=== PATIENT | female | born 1980 | race Two or more races ===

== ENCOUNTER 2019-07-20 21:43 | Inpatient (IN) | payer SELFPAY ==
[~2019-07-20] VITALS: Ht 160 cm; Wt 75.9 kg
[~2019-07-20 21:43] MED LIST: ACET325T14 PO; IBUP-1222 PO; PREN1TAB60 PO
--- NOTE | 2019-07-20 22:14 | NUR ---
Pt on monitors. Pt down to gown with blankets on. 2 PIV's placed. Blood drawn. NS bolus running.
[2019-07-20 22:19] LABS: BASOPHILS # (AUTO) 0.04 x10^3/uL (0-0.1); BASOPHILS % (AUTO) 0 % (0-1); EOSINOPHILS # (AUTO) 0.58 x10^3/uL (0-0.4); EOSINOPHILS % (AUTO) 3 % (1-7); LYMPHOCYTES # (AUTO) 2.68 x10^3/uL (1-3.4); LYMPHOCYTES % (AUTO) 16 % (22-44); MD NO; MEAN CORPUSCULAR HEMOGLOBIN 30.2 pg (27.0-34.8); MEAN CORPUSCULAR HGB CONC 32.9 g/dL (32.4-35.8); MEAN CORPUSCULAR VOLUME 91.6 fL (80-100); MEAN PLATELET VOLUME 9.1 fL (7.4-10.4); MONOCYTES # (AUTO) 0.69 x10^3/uL (0.2-0.8); MONOCYTES % (AUTO) 4 % (2-9); NEUTROPHILS # (AUTO) 13.17 x10^3/uL (1.8-6.8); NEUTROPHILS % (AUTO) 77 % (42-75); PLATELET COUNT 210 x10^3/uL (130-400); RED BLOOD COUNT 5.26 x10^6/uL (3.82-5.3); RED CELL DISTRIBUTION WIDTH 13.5 % (9.6-15.2)
[2019-07-20] MEDS ORDERED: SODIUM CHLORIDE 0.9% 1,000ML IVBOLUS ONE (22:30)
[2019-07-20 22:31] LABS: ALBUMIN 3.4 g/dL (3.4-5.0); ANION GAP 9 mmol/L (5-15); CHLORIDE 109 mmol/L (98-107)
[2019-07-20] MEDS ORDERED: FENTANYL PF 100 MCG/2ML ONE (22:33)
--- NOTE | 2019-07-20 22:38 | NUR ---
50mcg of fentanyl given per verbal order. MD at bedside with US. Current BP 102/56. Pt alert.
--- NOTE | 2019-07-20 22:50 | NUR ---
Blood started at 2248 - VS BP 106/74, 98.6f, 81, 14 MD at bedside for pelvic. Second liter started Addendum: 07/20/19 at 2302 by MRICH blood checked and started with FLORES Macias
--- NOTE | 2019-07-20 22:53 | NUR ---
CASE COORDINATOR: E [employer] DR. STERN PAGED PER DR. QUAN AT THIS TIME
[2019-07-20] MEDS ORDERED: MISOPROSTOL 200 MCG TABLET PO ONE (23:00)
[2019-07-20] MEDS ORDERED: TRANEXAMIC ACID 1,000 MG in SODIUM CHLORIDE 0.9% 100 ML IVPB ONE (23:00)
--- NOTE | 2019-07-20 23:02 | NUR ---
Pt alert and reports she feels better. MD finished pelvic. 350ml of blood suctioned from vaginal canal. BP 125/64, HR 86, RR 18, 99% RA. TXA running. back at bedside.
--- NOTE | 2019-07-20 23:09 | NUR ---
OB at bedside.
--- NOTE | 2019-07-20 23:23 | NUR ---
BP dropped to 78/45. Pt placed with feet elevated. OB doing exam.
--- NOTE | 2019-07-20 23:23 | NUR ---
Second unit started/ BP 95/54. HR 84, RR 14, 100% RA
--- NOTE | 2019-07-20 23:41 | NUR ---
Pt remains alert. BP 97/67 HR 85 RR17 100% RA. Second unit finished. OB at bedside explaining surgery to pt. Products of conception placed in container by OB and pt label applied.
[2019-07-21] MEDS ORDERED: METHYLERGONOVINE 0.2 MG/ML IM PRN
[2019-07-21 00:11] VITALS: BP 94/71
--- NOTE | 2019-07-21 00:21 | NUR ---
Report given to FEED MILLERFLORES Alvarado. Pt remains alert. First unit of crossed blood running. Methergine given.
--- NOTE | 2019-07-21 00:24 | NUR ---
OR tech at bedside for transport.
[2019-07-21] MEDS ORDERED: SILVER NITRATE STICK TP ONE (00:32)
[2019-07-21] MEDS ORDERED: MISOPROSTOL 200 MCG TABLET ONE (00:32)
[2019-07-21] MEDS ORDERED: OXYTOCIN 10 UNITS/ML, 1ML ONE (00:32)
[2019-07-21] MEDS ORDERED: METHYLERGONOVINE 0.2 MG/ML IM ONE (00:33)
[2019-07-21 00:36] LABS: INTERNATIONAL NORMALIZED RATIO 1.09 (0.93-1.1); PROTHROMBIN TIME 11.6 Seconds (9.6-11.5)
[2019-07-21] MEDS ORDERED: MIDAZOLAM 1 MG/ML, 2ML ONE (00:38)
[2019-07-21] MEDS ORDERED: FENTANYL PF 250 MCG/5ML ONE (00:38)
[2019-07-21] MEDS ORDERED: DEXAMETHASONE 4 MG/ML, 1ML ONE (00:40)
[2019-07-21] MEDS ORDERED: ROCURONIUM 10MG/ML,5ML ONE (00:40)
[2019-07-21] MEDS ORDERED: CEFAZOLIN 1,000 MG ONE (00:40)
[2019-07-21] MEDS ORDERED: GLYCOPYRROLATE 0.2MG/1ML, 5ML ONE (00:40)
[2019-07-21] MEDS ORDERED: PROPOFOL 10 MG/ML, 20ML ONE (00:40)
[2019-07-21] MEDS ORDERED: ONDANSETRON 2MG/ML, 2ML ONE (00:40)
[2019-07-21] MEDS ORDERED: NEOSTIGMINE 1 MG/ML, 10ML ONE (00:40)
[2019-07-21] MEDS ORDERED: SUCCINYLCHOLINE 20 MG/ML, 10ML ONE (00:40)
[2019-07-21] MEDS ORDERED: HYDROmorphone 2 MG/ML, 1ML IVPush PRN (01:00)
[2019-07-21] MEDS ORDERED: LABETALOL 5MG/ML, 20ML IV PRN (01:00)
[2019-07-21] MEDS ORDERED: HALOPERIDOL 5 MG/ML IV PRN (01:00)
[2019-07-21] MEDS ORDERED: hydrALAzine 20 MG/ML, 1ML IV PRN (01:00)
[2019-07-21] MEDS ORDERED: MORPHINE SULFATE 4 MG/ML, 1ML IVPush PRN (01:00)
[2019-07-21] MEDS ORDERED: FENTANYL PF 100 MCG/2ML IV PRN (01:00)
[2019-07-21] MEDS ORDERED: ACETAMINOPHEN 325 MG TABLET PO PRN (01:00)
[2019-07-21] MEDS ORDERED: MEPERIDINE/PF 25MG/ML,1ML IVPush PRN (01:00)
[2019-07-21] MEDS ORDERED: PROMETHAZINE 25 MG/ML, 1ML IV PRN (01:00)
[2019-07-21] MEDS ORDERED: OXYcodone 5 MG/5 ML ORAL.SOL UDC PO PRN (01:00)
[2019-07-21 02:30] VITALS: BP 94/67
[2019-07-21 02:35] VITALS: BP 94/67
[2019-07-21] MEDS ORDERED: ONDANSETRON 2MG/ML, 2ML IV PRN (03:00)
[2019-07-21] MEDS ORDERED: OXYcodone IR 5MG TABLET PO PRN (03:00)
[2019-07-21] MEDS ORDERED: morphine SULFATE 10 MG/ML, 1ML IV PRN (03:00)
[2019-07-21 03:35] VITALS: BP 90/68
[2019-07-21] MEDS: IBUPROFEN 600 MG TABLET PO SCH ×2 (03:49→09:06)
[2019-07-21] MEDS: ACETAMINOPHEN 325 MG TABLET PO SCH ×2 (03:49→09:06)
[2019-07-21] MEDS ORDERED: LACTATED RINGERS 1,000 ML IV SCH (04:00)
[2019-07-21] MEDS ORDERED: DOXYCYCLINE 100MG TABLET PO ONE (06:00)
[2019-07-21 06:49] LABS: BASOPHILS # (AUTO) 0.01 x10^3/uL (0-0.1); BASOPHILS % (AUTO) 0 % (0-1); EOSINOPHILS % (AUTO) 0 % (1-7); LYMPHOCYTES # (AUTO) 0.79 x10^3/uL (1-3.4); LYMPHOCYTES % (AUTO) 5 % (22-44); MD NO; MEAN CORPUSCULAR HEMOGLOBIN 29.2 pg (27.0-34.8); MEAN CORPUSCULAR HGB CONC 32.4 g/dL (32.4-35.8); MEAN CORPUSCULAR VOLUME 90.1 fL (80-100); MEAN PLATELET VOLUME 8.9 fL (7.4-10.4); MONOCYTES # (AUTO) 0.06 x10^3/uL (0.2-0.8); MONOCYTES % (AUTO) 0 % (2-9); NEUTROPHILS # (AUTO) 14.49 x10^3/uL (1.8-6.8); NEUTROPHILS % (AUTO) 94 % (42-75); PLATELET COUNT 155 x10^3/uL (130-400); RED BLOOD COUNT 4.68 x10^6/uL (3.82-5.3); RED CELL DISTRIBUTION WIDTH 14.6 % (9.6-15.2)
[2019-07-21 08:24] VITALS: BP 101/72
[2019-07-21] MEDS ORDERED: IBUP-1223 PO (08:45)
[2019-07-21] MEDS ORDERED: ACET-2065 PO (08:46)
== END 2019-07-21 09:50 | disposition home or self-care (01) | DRG 770 ==
LOC: OR 23:00 → 4NE 07-21 02:23 → DCLOUNGE 07-21 09:34
PROVIDERS: ADMIT Student in an Organized Health Care Education/Training Program; ATTEND Student in an Organized Health Care Education/Training Program
PROC: 30233N1 Transfusion of Nonautologous Red Blood Cells into Peripheral Vein, Percutaneous Approach (ICD-10-PCS; 2019-07-21)
PROC: 10D17ZZ Extraction of Products of Conception, Retained, Via Natural or Artificial Opening (ICD-10-PCS; principal; 2019-07-21 00:30)
DX: O03.4 Incomplete spontaneous abortion without complication (principal); Z3A.14 14 weeks gestation of pregnancy
CPT/HCPCS: 36415; 36430; 76801; 80048; 82040; 84702; 85025; 85384; 85610; 85730; 86850; 86900; 86923; 88305; 96372; J0690; J1100; J2250; J2405; J2704; J2710; J3010; J0330; J2210; J2590; J7030; J7120; P9016